=== PATIENT | female | born 1960 | race Caucasian/White ===

== ENCOUNTER → 2018-09-12 12:00 | Outpatient (REF) | payer OTHER, SELFPAY | LOC: LAB 12:00 | PROVIDERS: Family Provider Nurse Practitioner; PCP Nurse Practitioner; Visit Provider Otolaryngology | DX: H60.391 Other infective otitis externa, right ear (principal) | CPT/HCPCS: 87077; 87186 ==

== ENCOUNTER 2024-09-25 06:17 | Day surgery (SDC) | payer OTHER, SELFPAY ==
[2024-09-25] VITALS (7 sets, daily range): BP systolic 134–151; BP diastolic 74–88; PULSE 76–111; RESP 10–17; TEMP 36.6–36.7; O2SAT 93–96; BMI 29.6
--- NOTE | 2024-09-25 06:04 | P.HP_ITS ---
History of Present Illness History of Present Illness Chief complaint: [facility] [place] Narrative: 63 year old female here for right foot pain. The onset of injury was 02/06/2024. It involved the trauma from an 150-pound recycle bin that fell on her right great toe joint. She has since been dealing with severe pain to the impacted site daily that worsens with activities. She has continued to work without restrictions, and the pain has not improved despite conservative treatment efforts. She has attended physical therapy for six sessions since April. The pain interferes with her daily activities, including walking, hiking, and performing in a band. Patient reports ongoing pain and limited mobility in the big toe joint with bump that arose after the trauma. The patient is unable to fully bend the toe fully and experiences soreness. Pain is exacerbated by certain shoes and prolonged standing. The patient notes improvement in the last few weeks but still experiences discomfort, particularly with backward motion of the toe. The patient has been using carbon fiber plate inserts and Voltaren 1% gel, which have helped. The patient describes herself as very active, engaging in hiking and performing, and expresses frustration with the persistent symptoms affecting her lifestyle. Patient denies n/v/f/c/sob/cp. [facility] Medical History (Updated 09/19/24 @ 09:55 by Felecia Aaron RN) Palpitations Lightheadedness Hordeolum externum of right upper eyelid Eczema Greater trochanteric bursitis of right hip Vitamin D deficiency Impaired fasting glucose HLD (hyperlipidemia) Osteoarthritis Meds Home Medications and Allergies Home Medications Medication Instructions Recorded Confirmed Type diclofenac sodium 1 % topical gel 2 g topical QID 09/18/24 09/18/24 History bupropion HCl 150 mg tablet,12 hr 150 mg PO DAILY 09/19/24 09/19/24 History sustained-release fexofenadine 180 mg tablet 180 mg PO DAILY PRN Seasonal 09/19/24 09/19/24 History allergies hydroxyzine HCl 10 mg tablet 10 - 20 mg PO QID 09/19/24 09/19/24 History naltrexone 50 mg tablet 25 mg PO DAILY 09/19/24 09/19/24 History omeprazole 20 mg tablet,delayed 20 mg PO DAILY 09/19/24 09/19/24 History release Exam Neuro Other: NV intact. Extrem Other: Right foot: Decreased 1st MTP ROM with pain through out range of motion and crepitus. Bone thickening surrounding first metatarsal head. Pes planus. Assessment & Plan Assessment & Plan narrative: 1. Right foot post-traumatic arthritis. Patient seen and evaluated. Reviewed X-ray and MRI images with finding of hypertrophic bone formation and degenerative changes at dorsal first metatarsal head. Surgical plan: right foot cheilectomy and implantation of allograft. Risks and benefits of the procedure discussed with all questions answered to patient's satisfaction. Reviewed potential complications that may include but not limited to the following: DVT, failure to resolve all symptoms, infection, nerve injury, bleeding, recurrence, or wound. Reviewed surgical technique and general aftercare protocols. All questions answered to patient's satisfaction with no guarantees made. Patient verbalized understanding and agreed with surgical plan. RTC for post-op. Time-Based Coding :: [TOTAL MINUTES] spent with patient and on the chart (including review of chart, obtaining history, exam, reviewing outside data, placing orders, documenting exam and treatment plan, and counseling patient) on [DATE].
--- NOTE | 2024-09-25 06:11 | PM.PREOP ---
Pre-operative Note Interval Note History & Physical reviewed/Exam performed by Physician: Yes Changes to H&P: No
[2024-09-25] MEDS: LACTATED RINGERS 1,000 ML 100 ML IV ×2 (07:01→09:02)
[2024-09-25] MEDS: FAMOTIDINE 20 MG/2 ML VIAL IV (07:40)
[2024-09-25] MEDS: CEFAZOLIN 2 GM/100 ML PREMIX 100 ML IV (08:00)
[2024-09-25] MEDS: LIDOCAINE 1% (PF) 5 ML 10 ML INJ (08:10)
--- NOTE | 2024-09-25 08:25 | SUR.OPER ---
Supine on padded OR bed, head on pillow, arms secured on padded arm boards at <90 degrees abduction, legs uncrossed, safety belt at thigh, tape over blanket over non operative leg.
[2024-09-25] MEDS: BUPIVACAINE LIPOSOME 266 MG/20 ML VIAL INJ (10:15)
[2024-09-25] MEDS: KETOROLAC 30 MG/ML VIAL 15 MG IV (10:48)
[2024-09-25] MEDS: ACETAMINOPHEN IV 1,000 MG/100 ML VIAL 400 MG IV (10:48)
--- NOTE | 2024-09-27 09:45 | PM.OP.1 ---
Operative Date/Time/Diagnoses Date of procedure: 09/25/24 Pre-op diagnosis: 1. Right foot first metatarsophalangeal joint post-traumatic arthritis Post-op diagnosis: same Procedure & Clinicians Procedure: 1. Right foot cheilectomy with allograft implantation Same procedure as scheduled: Yes Indications: Right foot continuous pain that failed conservative treatment Surgeon: Piter Syed Click Yes if Unassisted: Yes Anesthesia Type: General and Local Operative Notes Findings: Degenerative changes to first metatarsophalangeal joint with osteophyte and intra-articular loose bodies Closure Type: primary Specimen(s): none sent Prosthetic devices, grafts, tissues, transplants, or devices: Arthrex ArthroFlex Estimated Blood Loss (mL): 20 Tourniquet time (min): 113 Procedure in detail: Patient was identified, brought into the operating room via gurney, and transferred onto the operating room table. Patient was in supine position. General anesthesia was administered, and local block using 10 cc 1% lidocaine plain was administered. 18 inch ankle tourniquet was applied over well-padded surface on the right side. Right foot was then prepped and draped in the usual sterile fashion, followed by official timeout with the surgical team all in agreement. Right lower extremity was exsanguinated, and tourniquet was inflated to 250 mmHg. Attention was directed to the right forefoot. A linear incision was carried using # 15 scalpel in layers from skin down to the level of joint capsule and bone. Care was taken to retract neurovascular bundles and protect tendons. The capsular tissue was reflected, and the joint was exposed. A McGlamery elevator was used free up the plantar adhesion. Hypertrophic bone formations and intra-articular loose bodies were noted. Using power, a sagittal saw was used to remove the osteophytes, and a reamer was used to reshape the metatarsal head and remove the diseased cartilage. A drill was used to fenestrate the metatarsal head to promote healing with fibrocartilage. Decision was made to proceed with implantation of allograft. Following manufacture instructions, two k-wires were placed under fluoroscopy guidance exiting proximal to the sesamoids, which was followed by drilling of the bone tunnel for shuttling the luggage-tag sutures attached to Arthrex ArthroFlex. After appropriate tension and placement was achieved, two Bio-Tenodesis screws were inserted to secure the graft. An addition suture anchor was used to anchor the excess FiberTape in a knotless fashion. Improved range of motion was noted at this time. Procedure site was then irrigated using copious saline. Tourniquet was released at 113 minutes with perfusion noted. Surgical site was closed in layers from deep to superficial using 2-0 vicryl, 3-0 vicryl, 4-0 vicryl, and 3-0 nylon. 12 cc of Exparel was administered. Incision site and foot was washed and dried, followed by sterile dressing using iodine soaked Adaptic, gauze, abdominal pad, and Kerlix. Posterior splint was applied over cast padding and secured with elastic bandage. Patient tolerated procedure without complication and was transferred to PACU with vital signs stable. Complications: none Post-operative Condition: stable Disposition: same day surgery Plan for aftercare: Non weight-bearing to surgical limb. Elevate above heart on 2+ pillows. Ice behind knee 15 minutes/hour. Keep dressing clean, dry, and intact.
== END 2024-09-25 11:48 | disposition home or self-care (01) ==
PROVIDERS: Family Provider Nurse Practitioner; PCP Nurse Practitioner Family; Referring Provider Podiatrist Foot & Ankle Surgery; Visit Provider Podiatrist Foot & Ankle Surgery
PROC: (CPT 28289; principal; 2024-09-25 07:45)
DX: M19.171 Post-traumatic osteoarthritis, right ankle and foot (principal); M25.774 Osteophyte, right foot; M24.074 Loose body in right toe joint(s)
CPT/HCPCS: 28289; C1713; C1781; J0134; J0666; J0690; J1100; J1885; J2250; J2405; J2704; J3010